=== PATIENT | male | born 1955 | race Caucasian/White ===

== ENCOUNTER 2020-06-04 06:12 | Outpatient (REF) | payer SELFPAY | END 2020-06-04 06:13 | disposition home or self-care (01) | LOC: HO.LAB 06:12 | PROVIDERS: PCP Internal Medicine; Visit Provider Internal Medicine | DX: Z20.828 Contact with and (suspected) exposure to other viral communicable diseases (principal) | CPT/HCPCS: C9803; U0003 ==

== ENCOUNTER 2022-07-24 08:41 | Day surgery (SDC) | payer MEDICARE, SELFPAY ==
[2022-07-24 09:30] VITALS: BP 121/71; PULSE 78; RESP 16; TEMP 36.4; O2SAT 97; BMI 23.3
[2022-07-24] MEDS: Sodium Phosphate,Mono-Dibasic 133 ML ENEMA PR (09:36)
--- NOTE | 2022-07-24 10:50 | P.CONAN_ITS ---
HPI - Anesthesia Eval Consult details Narrative: personal ho polyp FOR[facility]LY [facility], [facility] Past Medical History Medical History (Updated 07/23/22 @ 11:11 by Nori Granados, FANTASMA) Bilateral cataracts HTN (hypertension) Family History Family history of problems with anesthesia: No Surgical History Surgical History (Updated 07/23/22 @ 11:11 by Nori Granados RN) H/O aortic valve replacement H/O inguinal hernia repair History of Problems with Anesthesia: No Social History Social History Patient Tobacco Use Status: Never used Tobacco Use of substances other than those prescribed or required for medical reasons: No Advance Directives: Yes Advance Directives on File: Yes Advance Directives Date on File: 07/24/22 Nutrition Risks: No Nutritional Risk Meds Allergies Allergy/AdvReac Type Severity Reaction Status Date / Time cashew nut Allergy Unknown Verified 07/24/22 10:13 acetaminophen [From Percocet] AdvReac itching/anx Verified 07/23/22 11:10 ious oxycodone [From Percocet] AdvReac itching/anx Verified 07/23/22 11:10 ious Active Medications: Current Medications Lactated Ringer's (Lr) 1,000 mls @ 50 mls/hr IVCONT .Q20H DARÍO Sodium Biphosphate/Sodium Phosphate (Sodium Phosphate,[place]-Dibasic 133 Ml Enema) 133 ml MO ONCE PRN PRN Reason: Poor Colonoscopy Prep Results Last Admin: 07/24/22 09:36 Dose: 133 ml Home Medications Medication Instructions Recorded Confirmed Last Taken Type losartan 25 mg tablet mg 07/23/22 07/24/22 History mg metoprolol succinate 25 mg mg PO 07/23/22 07/24/22 History tablet,extended release 24 hr mg naproxen sodium 220 mg capsule mg 07/23/22 07/23/22 Unknown History (Ever) Exam Exam Date and Time: July 24, 2022 1050 Height,Weight and Vital Signs: Height 5 ft 6 in Weight 65.771 kg Last Vital Signs Temp 97.6 F 07/24/22 09:30 Pulse 78 07/24/22 09:30 Resp 16 07/24/22 09:30 BP 121/71 07/24/22 09:30 Pulse Ox 97 07/24/22 09:30 O2 Del Method 07/24/22 09:30 Airway Mallampati Class: II TM Dist: >3cm Neck ROM: Full Denture: Upper and Lower Heart: rr Lungs: cta Assessment and Plan Assessment Anesthesia Assessment: Anesthesia Plan Discussed and Chart Reviewed Final Anesthetic Review Family History of Problems with Anesthesia: No History of Problems with Anesthesia: No NPO: Yes ASA Class: II Final Preanesthetic Review: No Changes in Pt Med Stat, Meds/Allgs Chart Reviewed, Consent Obtained/Reviewed and Anes Risks/Benef Reviewed Patient Risk: Low Procedure Risk: Low Anesthetic Plan Anesthetic Plan: MAC: Disposition: Standard PACU
[2022-07-24 11:04] VITALS: BP 102/51; PULSE 63; RESP 16; TEMP 36.3; O2SAT 97
--- NOTE | 2022-07-24 11:04 | PM.OP ---
Brief Operative Note Date of Service: 07/24/22 Pre-op diagnosis: Screening Post-op diagnosis: other (Diverticulosis) Procedure: Colonoscopy to the cecum Surgeon: Ezequiel Winston Anesthesia: MAC Was an Major Assembler used for this Procedure?: No Estimated blood loss (mL): 0 Pathology: none sent Condition: stable Disposition: PACU
[2022-07-24 11:19] VITALS: BP 102/51; PULSE 64; RESP 16; O2SAT 97
[2022-07-24 11:34] VITALS: BP 116/56; PULSE 64; RESP 16; TEMP 36.2; O2SAT 97
--- NOTE | 2022-07-24 12:16 | OP_ITS ---
SURGEON: Ezequiel Winston MD INDICATIONS: The patient presents for evaluation of personal history of tubular adenoma of colon and colorectal cancer screening. Full consent has been obtained from him for this, including risks of bleeding and perforation. PREOPERATIVE DIAGNOSIS: POSTOPERATIVE DIAGNOSIS: PROCEDURE PERFORMED: Colonoscopy to the cecum. ESTIMATED BLOOD LOSS: COMPLICATIONS: ANESTHESIA: Monitored anesthesia care. ASSISTANTS: SPECIMENS: PREOPERATIVE DIAGNOSES: Colorectal cancer screening and history of colon polyps. POSTOPERATIVE DIAGNOSES: Colorectal cancer screening and history of colon polyps, diverticulosis, and internal hemorrhoids. PROCEDURE IN DETAIL: The patient was placed in the left lateral decubitus position. The digital rectal exam revealed no abnormalities. The Olympus video pediatric colonoscope was entered into the rectum and advanced easily to the cecum. Once in the cecum, I did identify a normal-appearing cecal pouch with appendiceal orifice and a normal-appearing ileocecal valve. The entire cecum and ileocecal valve appeared normal. There was transillumination of light deep in the right lower quadrant. Scope was then slowly withdrawn assessing all mucosal surface carefully. Preparation was excellent. I did not visualize any sign of polyps, colitis nor angiodysplasias. There was moderate amount of sigmoid diverticulosis. In the rectum, the scope was retroflexed visualizing internal hemorrhoids, but no other pathology. The rectal mucosa appeared normal. The scope was straightened and withdrawn from the patient. He tolerated the procedure well and was returned to the recovery area in stable condition. IMPRESSION: 1. Diverticulosis. 2. Internal hemorrhoids. PLAN: Given his previous history, I would recommend a followup colonoscopy in 5 years for further screening and surveillance. He will otherwise see me on a p.r.n. basis. Ezequiel Winston MD [facility]/DEJUAN / [id number] MTDD
== END 2022-07-24 11:55 | disposition home or self-care (01) ==
PROVIDERS: Visit Provider Internal Medicine
PROC: 0DJD8ZZ Inspection of Lower Intestinal Tract, Via Natural or Artificial Opening Endoscopic (ICD-10-PCS; CPT 45378; principal; 2022-07-24 10:00)
DX: Z12.11 Encounter for screening for malignant neoplasm of colon (principal); Z86.010 Personal history of colon polyps; K57.30 Diverticulosis of large intestine without perforation or abscess without bleeding; I10 Essential (primary) hypertension; Z79.899 Other long term (current) drug therapy; Z88.8 Allergy status to other drugs, medicaments and biological substances; Z95.2 Presence of prosthetic heart valve
CPT/HCPCS: G0105